=== PATIENT | female | born 1990 | race African-American/Black ===

== ENCOUNTER 2017-04-01 20:05 | Emergency (ER) | payer BC ==
[~2017-04-01] VITALS: Ht 160 cm; Wt 49.9 kg
--- NOTE | 2017-04-01 21:30 | NUR ---
Dr. Guillermo at bedside for MSE
--- NOTE | 2017-04-01 23:10 | NUR ---
Splint applied to 4th digit of R. hand, pos CMS s/p application. Pt stable for discharge per Dr. Guillermo. Pt given ACI. Pt verbalized understanding of dc instructions. Pt ambulated out of ER with steady gait.
[2017-04-01 23:24] VITALS: BP 93/51
== END 2017-04-01 23:10 | disposition home or self-care (01) ==
LOC: ER 20:06
DX: S63.616A Unspecified sprain of right little finger, initial encounter (principal); W22.8XXA Striking against or struck by other objects, initial encounter; Y93.89 Activity, other specified; Y92.89 Other specified places as the place of occurrence of the external cause; Y99.8 Other external cause status
CPT/HCPCS: 73140; A4663